=== PATIENT | female | born 2005 | race Two or more races ===

== ENCOUNTER 2023-08-01 17:05 | Observation (INO) | payer MEDICAID, OTHER ==
[2023-08-01] MEDS ORDERED: PREN1TAB71 OR (17:21)
== END 2023-08-01 19:02 | disposition home or self-care (01) ==
LOC: LDRP 17:05
PROVIDERS: ADMIT Obstetrics & Gynecology; ATTEND Obstetrics & Gynecology
DX: O36.8130 Decreased fetal movements, third trimester, not applicable or unspecified (principal); O26.893 Other specified pregnancy related conditions, third trimester; R10.30 Lower abdominal pain, unspecified; Z3A.29 29 weeks gestation of pregnancy
CPT/HCPCS: 59025; 81002; G0378